=== PATIENT | male | born 1970 | race African-American/Black ===

== ENCOUNTER 2018-04-01 13:57 | Emergency (ER) | payer OTHER ==
[2018-04-01 14:07] VITALS: BP 125/82
[2018-04-01 16:01] LABS: Urine Appearance Clear; Urine Bilirubin Negative (Negative); Urine Blood Negative (Negative); Urine Color Yellow; Urine Glucose Negative (Negative); Urine Ketones Negative (Negative); Urine Nitrite Negative (Negative); Urine Protein Negative (Negative); Urine Specific Gravity 1.023 (1.010-1.030); Urine Urobilinogen Negative (Negative)
--- NOTE | 2018-04-01 16:03 | ED ---
GI/ HPI - HPI Summary HPI Summary: Patient is a 47-year-old male presenting to the ED with partner with concern for bacterial vaginosis. Patient states his partner was recently diagnosed with bacterial vaginosis and he is concerned that he may have this. He is also requesting GC chlamydia testing. He endorses some mild discharge from the area , but denies any burning, frequency or pain. He states he has had this in the past before and has never been checked. Denies any fevers, sweats, chills. He endorses one sexual partner currently. - History of Current Complaint Chief Complaint: EDRashSkinAbscess Time Seen by Provider: 04/01/18 15:18 Stated Complaint: GENERAL Hx Obtained From: Patient Onset/Duration: Started Hours Ago Timing: Constant Severity: Moderate Current Severity: Moderate Pain Intensity: 0 Associated Signs and Symptoms: Positive: Negative Additional Signs & Symptoms: Positive: Penile Discharge Aggravating Factor(s): Nothing Alleviating Factor(s): Nothing - Allergy/Home Medications Allergies/Adverse Reactions: Allergies Allergy/AdvReac Type Severity Reaction Status Date / Time No Known Allergies Allergy Verified 04/01/18 14:07 PMH/Surg Hx/FS Hx/Imm Hx Previously Healthy: Yes - Immunization History Hx Pertussis Vaccination: No Immunizations Up to Date: Yes Infectious Disease History: No Infectious Disease History: Denies: Traveled Outside the [place] in Last 30 Days - Social History Occupation: Employed Full-time Lives: With Family Alcohol Use: Occasionally Hx Substance Use: Yes Substance Use Type: Reports: Marijuana Hx Tobacco Use: Yes Smoking Status (MU): Light Every Day Tobacco Smoker Review of Systems Constitutional: Negative Negative: Fever, Chills, Fatigue, Skin Diaphoresis Negative: Palpitations, Chest Pain Negative: Shortness Of Breath, Cough Negative: Abdominal Pain, Vomiting, Diarrhea, Nausea Genitourinary: Negative Positive: no symptoms reported Negative: Arthralgia, Myalgia Neurological: Negative All Other Systems Reviewed And Are Negative: Yes Physical Exam Triage Information Reviewed: Yes Vital Signs On Initial Exam: Initial Vitals Temp Pulse Resp BP Pulse Ox 98.5 F 67 18 125/82 97 04/01/18 14:02 04/01/18 14:02 04/01/18 14:02 04/01/18 14:02 04/01/18 14:02 Vital Signs Reviewed: Yes Appearance: Positive: Well-Appearing, Well-Nourished Skin: Positive: Warm, Skin Color Reflects Adequate Perfusion Head/Face: Positive: Normal Head/Face Inspection Eyes: Positive: EOMI, JAYLYN, Conjunctiva Clear Neck: Positive: Supple Respiratory/Lung Sounds: Positive: Clear to Auscultation, Breath Sounds Present Cardiovascular: Positive: RRR, Pulses are Symmetrical in both Upper and Lower Extremities Musculoskeletal: Positive: Normal, Strength/ROM Intact Neurological: Positive: Alert, Oriented to Person Place, Time, Speech Normal Psychiatric: Positive: Affect/Mood Appropriate Diagnostics - Vital Signs Vital Signs Temp Pulse Resp BP Pulse Ox 04/01/18 14:02 98.5 F 67 18 125/82 97 - Laboratory Lab Statement: Any lab studies that have been ordered have been reviewed, and results considered in the medical decision making process. GIGU Course/Dx - Course Course Of Treatment: Discussed with patient and partner at length regarding STDs and bacterial vaginosis as well as ceased infections. I discussed with patient he is unable to obtain bacterial vaginosis, however will test for GC and chlamydia. We'll also test for any UTI. Patient is okay with this plan, will call with any positive results. - Diagnoses Provider Diagnoses: Patient requested test Discharge - Sign-Out/Discharge Documenting (check all that apply): Patient Departure Patient Received Moderate/Deep Sedation with Procedure: No - Discharge Plan Condition: Stable Disposition: HOME Patient Education Materials: Bacterial Vaginosis (ED), Chlamydia (ED), Gonorrhea (ED), Yeast Infection (ED) Referrals: No Primary Care Phys,NOPCP [Primary Care Provider] - - Billing Disposition and Condition Condition: STABLE Disposition: Home
[2018-04-02 13:17] LABS: Neisseria gonorrhoeae (GC) RNA Negative (Negative)
== END 2018-04-01 16:05 | disposition home or self-care (01) ==
LOC: ED 13:57
DX: Z11.3 Encounter for screening for infections with a predominantly sexual mode of transmission (principal); F17.210 Nicotine dependence, cigarettes, uncomplicated
CPT/HCPCS: 81003; 87491; 87591; 99282